=== PATIENT | female | born 1970 | race Caucasian/White ===

== ENCOUNTER → 2017-01-30 | Outpatient (CLI) | payer BC ==
[2016-05-12 21:11] VITALS: BP 102/64
[~2017-01-30] MED LIST: ALPR0.5T PO; ASPI-482 PO; ATOR10TA60 PO; CYCL10TA2 PO; ESZO3TAB28 PO; FURO-68 PO; GABA-586 PO; HYDR-2758 PO; LISI10TA2 PO; OMEP40CA5 PO; OXYC-323 PO; OXYC1TAB8 PO; POTA20TA12 PO; TRAZ100T12 PO; TRAZ300T2 PO; VENTOLIN HFA18 GM INH; ZOLP10TA PO; lipitor; methylPREDNISolone ACETATE 40 MG/ML VIAL. ONE; methylPREDNISolone ACETATE 80 MG/ML VIAL. ONE
--- NOTE | 2017-01-30 10:37 | PAIN ---
DATE OF SERVICE: 01/30/2017 DIAGNOSES: 1. Myofascial pain. 2. Cervical radiculopathy with cervical degenerative disk disease. HISTORY OF PRESENT ILLNESS: This is a 46-year-old female who returns for followup status post previous cervical epidural steroid injections, last seen 12/01/2015. The patient did very well for almost a year, got 99% improvement. Pain returning now over the past 3 to 4 weeks in the bilateral shoulders and upper extremities, with radiation more in the right arm than the left, but numbness and tingling in the bilateral hands, again worse on the right, with aching, sharp type shooting pain, burning and tingling, radiating pain becoming more constant without any specific recent injury or accident. The patient reports it has been 8 on a scale of 10 at its worse, is averaging about 5. The patient reports it wakes her from sleep 3-4 times a night. She has to reposition, and she continues to get back to sleep. The patient reports no new motor or sensory deficits, no new bowel or bladder incontinence, but still significant pain, again worse on the right arm, shoulder, anterior aspect of the biceps, triceps posteriorly as well with tingling and numbness in the hands with significant fatigability of the right upper extremity compared to the left with activity. The patient reports no loss of function, but significant fatigability as noted. PAST MEDICAL HISTORY: Significant for COPD, hypertension, borderline diabetes, arthritis, acid reflux and hypercholesterolemia. PREVIOUS SURGERY: Includes tonsillectomy, tubal ligation, bilateral carpal tunnel repair, femur fracture on the left with intramedullary alejandro, partial hysterectomy and left ACL reconstruction. SOCIAL HISTORY: The patient smokes about a pack a day, drinks alcohol very rarely. She is and lives with spouse and one child and is an ELECTRIC METER TECHNICIAN by occupation. FAMILY HISTORY: Significant for anemia, obesity, diabetes, hypertension, heart disease and strokes. MEDICATIONS: The patient's medication list is updated and documented well in the patient's chart. REVIEW OF SYSTEMS: Positive for those items mentioned in history of present illness. All systems reviewed and otherwise negative. It is complete, full and well documented on the patient's chart as well. PHYSICAL EXAMINATION: VITAL SIGNS: The patient's blood pressure 126/61, pulse 80, respirations 16, temperature 97.7 degrees Fahrenheit, height is 5 feet 6 inches, weighs 220 pounds. GENERAL: The patient is awake, alert, oriented, appropriate, very pleasant demeanor. HEENT: Head shows normocephalic, atraumatic. Extraocular movements are intact and symmetrical. Oral cavity shows mucous membranes moist and pink. Dentition is intact. NECK: Shows anterior throat supple without palpable lymphadenopathy noted. Swallow reflex is symmetrical. CHEST: Shows normal on inspection. Breath sounds are clear to auscultation bilaterally. HEART: Shows S1 and S2 clear. No murmurs auscultated. ABDOMEN: Obese, soft, nontender, nondistended. No palpable organomegaly is noted. No rebound or guarding demonstrated. BACK: Shows spine grossly in the midline. Normal-appearing thoracic kyphosis, cervical lordotic curvature and lumbar lordotic curvature. Significant tattooing is noted throughout the patient's cervical distribution and shoulders, with palpation shows some moderate tenderness in the paraspinous musculature, but are symmetrical without specific radiation, more tender on the right than the left in the superior medial trapezius compared to the lateral trapezius, but present bilaterally, again more tender on the right. The patient shows good rotational motion of cervical spine, both laterally greater than 45 degrees right and left as well as extension and full forward flexion without significant increase in pain. EXTREMITIES: Upper extremities showed deep tendon reflexes at 1+ in the biceps and triceps tendons. Motor exam is approximately 4 on a scale of 5 with right iron melter and 5/5 on the left. Peripheral pulses are 2+ radial distribution. No peripheral edema is noted bilaterally. Options were discussed with the patient, and the patient's old chart was reviewed as her current medication regimen updated. Current review of systems updated and today as noted. We will proceed with a cervical epidural steroid injection. She has done very well with these in the past. Risks were again discussed including, but not limited to bleeding, infection, possibility of epidural hematoma and subsequent neurologic compromise, dural puncture, headaches, spinal cord and/or nerve damage, side effects of steroid medication and poor results regarding pain control. The patient understands and wishes to proceed. The patient will return to clinic in approximately 2 weeks for followup. She was counseled on return appointment, activity level and side effects to be aware of. DIAGNOSES: Cervical radiculopathy with cervical degenerative disk disease. PROCEDURE: Cervical epidural steroid injection in translaminar approach at C6-C7 level, using C-arm fluoroscopic guidance under sterile prep and drape using local anesthetic. MEDICATION INJECTED: Total of 120 mg Depo-Medrol plus 5 mL preservative-free normal saline and 2 mL Isovue for contrast. CONDITION AT DISCHARGE: Stable. The patient tolerated procedure well, had no complications. ALANA LEES MD DR: CLIFFORD/vanesa JOB#: [id number] / [id number]
== END | disposition home or self-care (01) ==
LOC: PNCL 09:07
PROVIDERS: ATTEND Anesthesiology
DX: M50.123 Cervical disc disorder at C6-C7 level with radiculopathy (principal); D64.9 Anemia, unspecified; E66.9 Obesity, unspecified; Z68.36 Body mass index [BMI] 36.0-36.9, adult; E11.9 Type 2 diabetes mellitus without complications; J44.9 Chronic obstructive pulmonary disease, unspecified; M19.91 Primary osteoarthritis, unspecified site; K21.9 Gastro-esophageal reflux disease without esophagitis; Z86.69 Personal history of other diseases of the nervous system and sense organs; Z98.51 Tubal ligation status; Z90.710 Acquired absence of both cervix and uterus; Z72.0 Tobacco use; Z86.14 Personal history of Methicillin resistant Staphylococcus aureus infection; Z91.041 Radiographic dye allergy status; Z86.39 Personal history of other endocrine, nutritional and metabolic disease; Z83.3 Family history of diabetes mellitus
CPT/HCPCS: 62321; J1030; J1040

== ENCOUNTER → 2017-02-14 | Outpatient (CLI) | payer BC ==
[2016-05-12 21:11] VITALS: BP 102/64
[~2017-02-14] MED LIST changes: +IOHEXOL 180 MG/ML 10 ML VIAL. ONE
--- NOTE | 2017-02-14 10:48 | PAIN ---
DATE OF SERVICE: 02/14/2017 PROGRESS NOTE FOR PAIN CLINIC DIAGNOSES: 1. Myofascial pain. 2. Cervical radiculopathy with cervical degenerative disk disease. 3. Lumbar radiculopathy with lumbar degenerative disk disease. HISTORY OF PRESENT ILLNESS: The patient is a 46-year-old female who returns for followup status post cervical epidural steroid injection x 1. The patient returns and reports about 85% improvement in the neck and right greater than left upper extremity pain. The patient reports her main complaint now is low back and right lower extremity pain. She has had this previously but is becoming much worse now that her neck is doing much better. The neck is more noticeable with pain radiating down the right leg in the lateral anterior thigh, posterior thigh, medial lower leg to the medial ankle and foot. The patient reports an aching, sharp, shooting, cramping, constant becoming more severe, rated an 8 on a scale of 10 at its worst, 5 on average and 4 is at least and is 4 today. The patient reports no new motor or sensory deficits, no new bowel or bladder incontinence or other complaints and again her neck is doing much better but her low back is her main complaint at this time. The patient reports it awakens her from sleep at night. She has because of the low back and right lower extremity pain fairly significantly throughout the evening and throughout the night. The patient reports no new motor or sensory deficits. No new bowel or bladder incontinence or other complaints. PHYSICAL EXAMINATION: VITAL SIGNS: The patient's blood pressure 116/74, pulse 76, respirations 18 and temperature 97.9 degrees Fahrenheit. Height is 5 feet 6 inches and weight is 224 pounds. GENERAL: The patient is awake, alert, oriented, appropriate and very pleasant demeanor. HEENT: Head shows normocephalic and atraumatic. Extraocular movements are intact and symmetrical. Oral cavity shows mucous membranes moist and pink. Dentition is intact. NECK: Shows anterior throat supple without palpable lymphadenopathy noted. Swallow reflex is symmetrical. CHEST: Shows normal with inspection. Breath sounds clear to auscultation bilaterally. HEART: Shows S1 and S2 clear. No murmurs auscultated. ABDOMEN: Soft, obese, nontender and nondistended. BACK: Shows spine grossly in the midline. Neck shows full rotational motion of the cervical spine without significant difficulty or tenderness. Normal appearing cervical lordotic curvature, thoracic kyphotic curvature and lumbar lordotic curvature. The patient has some extensive tattooing on her back with inspection. Her paraspinous musculature in the lumbar distribution is symmetrical with palpation shows some moderate tenderness with palpation bilaterally and diffusely in the lower lumbar distribution but only moderately without radiation. No tenderness over the sacrum or sacroiliac regions. No difficulty with rotational motion, which the patient performs fully right and left as well as extension and flexion of the lumbar spine without pain reported. Lower extremities show deep tendon reflexes 1+ in the patellar and tendo-calcaneus tendons. Motor exam is strong with 5/5 dorsiflexion, extension, quadriceps and hamstring flexion is intact. Peripheral pulses are 1+ posterior tibial bilaterally. Options were discussed with the patient. The patient's old chart was reviewed as her current medication regimen updated. Current review of systems updated today as well. We will proceed with a lumbar epidural steroid injection today with fluoroscopic guidance. Risks were again discussed including but not limited to bleeding, infection, possibility of epidural hematoma and subsequent neurologic compromise, dural puncture, headaches, spinal cord and/or nerve damage, side effects of steroid medication and poor results regarding pain control. The patient understands and wishes to proceed. The patient will return to clinic in approximately 2 weeks for followup, was counseled on return appointment, activity level and side effects to be aware of. DIAGNOSIS: Lumbar radiculopathy with lumbar degenerative disk disease. PROCEDURES: Lumbar epidural steroid injection in translaminar approach at L4-L5 level using C-arm fluoroscopic guidance under sterile prep and drape using local anesthetic. MEDICATION INJECTED: A total of 120 mg Depo-Medrol plus 10 mL of preservative-free normal saline. CONDITION AT DISCHARGE: Stable. The patient tolerated procedure well, had no complications. ALANA LEES MD DR: CLIFFORD/vanesa JOB#: [id number] / [id number]
== END | disposition home or self-care (01) ==
LOC: PNCL 07:41
PROVIDERS: ATTEND Anesthesiology
DX: M51.16 Intervertebral disc disorders with radiculopathy, lumbar region (principal); M50.10 Cervical disc disorder with radiculopathy, unspecified cervical region; E78.00 Pure hypercholesterolemia, unspecified; J44.9 Chronic obstructive pulmonary disease, unspecified; I10 Essential (primary) hypertension; Z87.39 Personal history of other diseases of the musculoskeletal system and connective tissue; Z86.69 Personal history of other diseases of the nervous system and sense organs; Z72.0 Tobacco use; Z91.041 Radiographic dye allergy status; Z83.3 Family history of diabetes mellitus
CPT/HCPCS: 62323; J1030; J1040

== ENCOUNTER → 2018-08-27 | Outpatient (CLI) | payer BC, MEDICAID ==
[2016-05-12 21:11] VITALS: BP 102/64
[~2018-08-27] MED LIST changes: +ALBU2.5V8 INH; +ALPR2TAB5 PO; +ATOR40TA59 PO; +BUDE180A IH; +BUPR150T15 PO; +BUSP30TA PO; +CETI10TA22 PO; +EZET10TA48 PO; -GABA-586 PO; +GABA300C18 PO; -HYDR-2758 PO; +HYDR-2761 PO; +HYDR25TA PO; -IOHEXOL 180 MG/ML 10 ML VIAL. ONE; +MONT10TA6 PO; +NAPR-634 PO; +ONDA8TAB9 PO; -OXYC-323 PO; +OXYC1TAB15 PO; +PRAZ2CAP2 PO; +TRAZ-86 PO; -TRAZ100T12 PO; -methylPREDNISolone ACETATE 40 MG/ML VIAL. ONE; -methylPREDNISolone ACETATE 80 MG/ML VIAL. ONE
--- NOTE | 2018-08-27 11:34 | RAD ---
Examination: MRI of the right shoulder without contrast HISTORY: History of right shoulder pain with limited range of motion COMPARISON: None available Technique: Multiplanar, multisequence MR imaging of the right shoulder were performed without contrast. Findings: The long head of the biceps tendon within the bicipital groove. The attachment of the long head the biceps tendon to the superior labral anchor grossly appears intact. The attachment of subscapularis tendon grossly appears intact. There is a small focus of increased signal identified in the undersurface fibers of the anterior supraspinatus tendon likely a high-grade partial to near full-thickness tear. Moderate increased signal identified within the supraspinatus, infraspinatus tendons likely tendinosis. Moderate degenerative changes identified in the acromioclavicular joint. The acromion is type II. The muscle bulk grossly appears unremarkable. The visualized labrum grossly appears unremarkable Fat is present within the intertubercular interval. Mild degenerative changes glenohumeral joint. IMPRESSION: 1.High-grade partial to full-thickness tear identified in the anterior fibers of the supraspinatus tendon with a background of moderate tendinosis of the supraspinatus, infraspinatus tendons. 2. Downsloping of the acromion. Correlate for impingement. 3. Moderate degenerative changes acromioclavicular joint Electronically signed by: Srinivasa Block MD (08/27/2018 11:31 AM) [email or web address]
== END | disposition home or self-care (01) ==
LOC: MRI 10:24
PROVIDERS: ATTEND Orthopaedic Surgery Sports Medicine
DX: S46.911A Strain of unspecified muscle, fascia and tendon at shoulder and upper arm level, right arm, initial encounter (principal); M19.011 Primary osteoarthritis, right shoulder; X58.XXXA Exposure to other specified factors, initial encounter; Y93.89 Activity, other specified; Y92.89 Other specified places as the place of occurrence of the external cause; Y99.8 Other external cause status
CPT/HCPCS: 73221

== ENCOUNTER → 2018-09-03 | Outpatient (CLI) | payer OTHER ==
[2016-05-12 21:11] VITALS: BP 102/64
--- NOTE | 2018-09-03 12:56 | RAD ---
Lumbar spine, right hip and right knee radiograph 09/03/2018 12:00 AM INDICATION: Pain with decreased range of motion COMPARISON: None available. TECHNIQUE: 2 views of the lumbar spine, 3 views of the right hip and 2 views of the right knee are provided. FINDINGS: Lumbar spine: There are 5 nonrib-bearing lumbar type vertebral bodies. There is minimal retrolisthesis of L5 and S1. There is mild disc height loss at L3-L4 and L4-L5 with mild endplate sclerosis. Mild anterior marginal osteophytosis is identified at L3-L4 and L4-L5. There is moderate disc height loss at L5-S1 with endplate sclerosis and mild anterior marginal osteophytosis. Moderate facet arthropathy is noted in the lower lumbar spine. Vascular stent graft is identified within the distal abdominal aorta. Right hip: There is no acute fracture or dislocation. Mild joint space narrowing with subcortical sclerosis. No significant marginal osteophytosis. Superior and inferior pubic rami appear intact. Bone mineralization is within normal limits. Right knee: Mild medial femorotibial joint space narrowing with subcortical sclerosis. Small knee joint effusion. No acute fracture or dislocation. Mild marginal osteophytosis involving the lateral femorotibial joint space. IMPRESSION: 1. There is minimal retrolisthesis of L5 on S1 with moderate associated facet arthropathy. 2. No acute fracture or dislocation the right hip. 3. No acute fracture or dislocation of the right knee. Mild medial femorotibial osteoarthrosis. 4. Small knee joint effusion. Electronically signed by: Mana Timmons MD (09/03/2018 12:53 PM) [email or web address]
--- NOTE | 2018-09-03 13:13 | RAD ---
Cervical spine radiograph 09/03/2018 INDICATION: Decreased range of motion. COMPARISON: MRI cervical spine July 03, 2015 TECHNIQUE: AP and lateral views of the cervical spine are provided. FINDINGS: There is reversal of the normal cervical lordosis. There is grade 1 retrolisthesis of C5 on C6. There is mild disc height loss at C5-C6 with endplate sclerosis and marginal osteophytosis. There is mild to moderate multilevel facet arthropathy. Mild uncovertebral joint disease and it C5-C6. There is no prevertebral soft tissue swelling. No acute fracture is identified. Spinous processes are intact. IMPRESSION: Grade 1 retrolisthesis of C5 on C6 with reversal of the normal cervical lordosis. Findings may be secondary to degenerative facet arthropathy. Electronically signed by: Mana Timmons MD (09/03/2018 1:10 PM) [email or web address]
== END | disposition home or self-care (01) ==
LOC: RAD 10:28
PROVIDERS: ATTEND Internal Medicine
DX: M25.461 Effusion, right knee (principal); M25.761 Osteophyte, right knee; M25.861 Other specified joint disorders, right knee; M25.851 Other specified joint disorders, right hip; M12.88 Other specific arthropathies, not elsewhere classified, other specified site; Z95.828 Presence of other vascular implants and grafts
CPT/HCPCS: 72040; 72100; 73502; 73560

== ENCOUNTER 2018-09-26 05:57 | Day surgery (SDC) | payer MEDICAID ==
[~2018-09-26] VITALS: Ht 162.6 cm; Wt 103.0 kg
[~2018-09-26 05:57] MED LIST changes: +MONT10TA49 PO; -MONT10TA6 PO; -ONDA8TAB9 PO
[2018-09-26] MEDS ORDERED: LIDOCAINE 1% PF 30 ML VIAL. ONE (05:59)
[2018-09-26] MEDS ORDERED: EPINEPHrine VIAL 30 MG/30 ML VIAL ONE (05:59)
[2018-09-26] MEDS ORDERED: BUPIVACAINE MPF 0.5% 30 ML VIAL. ONE (05:59)
[2018-09-26] MEDS ORDERED: ONDANSETRON PF 4 MG/2 ML VIAL. IV PRN (07:00)
[2018-09-26] MEDS ORDERED: fentaNYL PF VIAL 100 MCG/2 ML VIAL IV PRN ×2 (07:00)
[2018-09-26] MEDS ORDERED: IV RINGERS,LACTATED 1000ML 1,000 ML IV SCH (07:00)
[2018-09-26] MEDS ORDERED: PROCHLORPERAZINE 10 MG/2 ML VIAL. IV PRN (07:00)
[2018-09-26] MEDS ORDERED: HYDROmorphone 2 MG/ML VIAL IV PRN (07:00)
[2018-09-26] MEDS ORDERED: MORPHINE SULFATE 2 MG/ML VIAL. IV PRN (07:00)
[2018-09-26] MEDS ORDERED: MIDAZOLAM HCL/PF 2 MG/2 ML VIAL. ONE (07:03)
[2018-09-26] MEDS ORDERED: BUPIVACAINE MPF 0.75% 30 ML VIAL. ONE (07:04)
[2018-09-26] MEDS ORDERED: LIDOCAINE 1% PF 2 ML VIAL. ONE (07:04)
[2018-09-26] MEDS ORDERED: EPINEPHrine 1 MG/ML VIAL ONE (07:04)
[2018-09-26] MEDS ORDERED: LIDOCAINE 2% PF 5 ML VIAL. ONE (07:12)
[2018-09-26] MEDS ORDERED: DEXAMETHASONE SOD PHOS 4 MG/ML VIAL ONE (07:12)
[2018-09-26] MEDS ORDERED: ONDANSETRON PF 4 MG/2 ML VIAL. ONE (07:12)
[2018-09-26] MEDS ORDERED: PROPOFOL 20 ML IV ONE ×2 (07:12→08:20)
[2018-09-26] MEDS ORDERED: ROCURONIUM 50 MG/5 ML VIAL. ONE (07:14)
--- NOTE | 2018-09-26 07:34 | DISCH ---
DISCHARGE INSTRUCTIONS Condition on Discharge Condition on Discharge: Stable Activity After Discharge Activity Instructions for Disc: Activity as tolerated, Other ROM activity Other activity instructions: arm to remain in sling Lifting Instructions after Dis: Add. restrict see below Weight Bearing Status after Di: Non weight bearing Diet after Discharge Diet after Discharge: Cardiac, Regular Diet Texture: Regular Wound Incision Care Wound/Incision Care: Ice to area for comfort, Keep wound/cast CDI, Change dressing, No wound care needed Contacting the DR. after DC Call your doctor for: Concerns you may have Follow-Up Follow up with: Andrade in 2 wks ESVIN CROSS II, MD September 26, 2018 07:34
[2018-09-26] MEDS ORDERED: ceFAZolin 2GM PREMIX 2 GM/50 ML BAG IV ONE (08:00)
[2018-09-26] MEDS ORDERED: SEVOFLURANE 61 TO 120 MINUTES. IH ONE (08:04)
[2018-09-26] MEDS ORDERED: PHENYLEPHRINE in 0.9% NACL PF 1 MG/10 ML SYRINGE. IV ONE ×2 (08:04→08:08)
--- NOTE | 2018-09-26 08:49 | PDOC4 ---
Operative Note Operative Note Date of procedure: 09/26/2018 Surgeon: Bertin Cross Volcanology Professor: Ellen Fitch, certified public accountant Preoperative diagnosis: Right shoulder rotator cuff tear Postoperative diagnosis: Same Procedure performed: Arthroscopic right shoulder rotator cuff repair Anesthesia: Gen. plus regional nerve block Findings: #1 Incomplete supraspinatus tear, remainder of rotator cuff unremarkable #2 Grade 2-3 changes a glenoid and humeral head #3 Labrum intact circumferentially, some degenerative fraying superiorly #4 No loose bodies #5 biceps tendon unremarkable Blood loss: 5mL Components inserted: [employer] Helacoil anchor Reason for procedure: Patient is a very pleasant female who has had long- standing shoulder pain and dysfunction. She had been seen and evaluated in my outpatient orthopedic surgery clinic, please see this note for full details. She had tried and failed conservative therapies. Clinical and radiographic examination, including MRI, was consistent with the preoperative diagnosis. We had a discussion of the risks, benefits, alternatives the above surgery and he wished to proceed. Description of procedure: Patient was greeted in the preoperative holding area where the correct extremity was verified and marked. They were taken to the preoperative holding area where the anesthesiology team placed a regional nerve block. The patient was then taken back to the operative suite and antibiotics were started as they were brought back. Once in the operative room, the patient was transferred gently supine to the operating room table after successful induction of a general anesthetic. After this, she was sat up in a beachchair position maintaining his C-spine in neutral position, large pad under her legs, she was secured to the bed. We then prepped and draped her right upper extremity and shoulder girdle in our usual sterile fashion, we conducted our standard preoperative timeout. I palpated and marked surface anatomy for my planned portal sites. I then used a spinal needle to localize a posterior superior portal and incised skin in accordance with this. After this, I introduced the blunt arthroscopic trocar into the glenohumeral joint followed by the camera. I used a spinal needle to localize an anterosuperior portal and incised skin in accordance with this. I then introduced my arthroscopic probe and conducted my diagnostic arthroscopy with the above-noted findings. I then inspected her rotator cuff and noted the incomplete tear, used a spinal needle to pass a PDS suture through the tear so I wasnt able to visualize it from the bursal side. After this, I repositioned the camera into the subacromial space and performed a bursectomy with combination of shaver and electrocautery device. I then used a spinal needle for localization and created a lateral portal. I then screwed into position my cannula laterally. I then created a posterolateral portal for suture management. I then directed my attention to the area the PDS suture and was easily able to violate the substance of the tendon with the blunt probe. I then debrided the tendon to stable edges as well as I prepared my footprint, taking care not to decorticate. I then placed my helacoil anchors and shuttled limbs through in a simple configuration. I tied these down with arthroscopic knot-tying techniques. The tear was stable to probing and to gentle rotation of the arm. I then removed all loose bony debris and the excess arthroscopic fluid. I took my final pictures prior to this. After this, all the excess fluid and instrumentation was removed. The portals were closed with simple interrupted 3-0 nylon. Steri-Strips were applied. Sterile dressing was applied followed by an abduction pillow sling. Patient tolerated surgery well. No complications. All counts correct 2 prior to wound closure. At the conclusion, she was laid supine and transferred gently supine to the r ecovery room cart and taken to the PACU in a stable and extubated condition. Postoperative plan is discharge him home, nonweightbearing for 6 weeks. Well get her started on physical therapy. She will follow up with me in 2 weeks, sooner should a problem arise. BERTIN CROSS II, MD September 26, 2018 08:49
[2018-09-26] MEDS ORDERED: OXYC1TAB15 PO (09:30)
[2018-09-26] MEDS ORDERED: ONDA8TAB9 PO (09:30)
[2018-09-26 09:47] VITALS: BP 94/73
== END 2018-09-26 10:03 ==
LOC: SURG 05:57
PROVIDERS: ATTEND Orthopaedic Surgery Sports Medicine
DX: M75.111 Incomplete rotator cuff tear or rupture of right shoulder, not specified as traumatic (principal); M24.111 Other articular cartilage disorders, right shoulder; F17.210 Nicotine dependence, cigarettes, uncomplicated; J44.9 Chronic obstructive pulmonary disease, unspecified; K21.9 Gastro-esophageal reflux disease without esophagitis; Z90.710 Acquired absence of both cervix and uterus; Z98.890 Other specified postprocedural states; Z72.89 Other problems related to lifestyle; Z91.041 Radiographic dye allergy status; Z79.899 Other long term (current) drug therapy
CPT/HCPCS: 29827; 36415; 82306; A7015; C1713; C1782; J0171; J0696; J1100; J2001; J2250; J2370; J2405; J2704; J3490; J7120

== ENCOUNTER 2019-01-20 02:40 | Emergency (ER) | payer MEDICAID ==
[~2019-01-20] VITALS: Ht 165.1 cm; Wt 90.3 kg
[~2019-01-20 02:40] MED LIST changes: +ONDA8TAB9 PO
[2019-01-20] MEDS ORDERED: TRAM50TA PO (03:10)
[2019-01-20] MEDS ORDERED: ONDA4TAB7 PO (03:10)
--- NOTE | 2019-01-20 03:11 | PHYS DOC ---
Past Medical History Past Medical History: Anxiety, Fibromyalgia, Hypertension, Other Additional Past Medical Histor: PTSD, lower ext edema Past Surgical History: Hysterectomy, Tonsillectomy, Other Additional Past Surgical Histo: ACL RECONSTRUCTION, HIP/FEMUR, BILAT CARPEL TUNNEL,AORTIC STENT PLACED OCT. Alcohol Use: Occasionally Drug Use: None Adult General Chief Complaint Chief Complaint: KNEE SWELLING HPI HPI Patient is a 48 year old [f__sex] who presents with [] Review of Systems Review of Systems Constitutional: Denies fever or chills [] Eyes: Denies change in visual acuity, redness, or eye pain [] HENT: Denies nasal congestion or sore throat [] Respiratory: Denies cough or shortness of breath [] Cardiovascular: No additional information not addressed in HPI [] GI: Denies abdominal pain, nausea, vomiting, bloody stools or diarrhea [] : Denies dysuria or hematuria [] Musculoskeletal: Denies back pain or joint pain [] Integument: Denies rash or skin lesions [] Neurologic: Denies headache, focal weakness or sensory changes [] Endocrine: Denies polyuria or polydipsia [] All other systems were reviewed and found to be within normal limits, except as documented in this note. Allergies Allergies Allergies Coded Allergies Type Severity Reaction Last Updated Verified Iodinated Contrast- Oral and IV Dye Allergy Severe Rash 09/26/18 Yes Physical Exam Physical Exam Constitutional: Well developed, well nourished, no acute distress, non-toxic appearance. [] HENT: Normocephalic, atraumatic, bilateral external ears normal, oropharynx moist, no oral exudates, nose normal. [] Eyes: PERRLA, EOMI, conjunctiva normal, no discharge. [] Neck: Normal range of motion, no tenderness, supple, no stridor. [] Cardiovascular:Heart rate regular rhythm, no murmur [] Lungs & Thorax: Bilateral breath sounds clear to auscultation [] Abdomen: Bowel sounds normal, soft, no tenderness, no masses, no pulsatile masses. [] Skin: Warm, dry, no erythema, no rash. [] Back: No tenderness, no CVA tenderness. [] Extremities: No tenderness, no cyanosis, no clubbing, ROM intact, no edema. [] Neurologic: Alert and oriented X 3, normal motor function, normal sensory function, no focal deficits noted. [] Psychologic: Affect normal, judgement normal, mood normal. [] EKG EKG [] Radiology/Procedures Radiology/Procedures [] Course & Med Decision Making Course & Med Decision Making Pertinent Labs and Imaging studies reviewed. (See chart for details) [] Dragon Disclaimer Dragon Disclaimer This electronic medical record was generated, in whole or in part, using a voice recognition dictation system. Departure Departure Impression: Primary Impression: Knee pain, right Disposition: HOME, SELF-CARE Condition: STABLE Referrals: JANE FERREIRA MD (PCP) Patient Instructions: Knee Pain, Elby-[id number]-[id number] Additional Instructions: Tylenol/Motrin as needed for pain Xray not repeated given no acute injury and already completed as outpatient Keep appointment as scheduled for 01/29 with orthopedic doctor Recommend calling PCP for further instructions Continue use of crutches as needed Return to the ER with fever, skin changes concerning for cellulitis, altered mental status Scripts Ondansetron Hcl (ZOFRAN) 4 Mg Tablet 1 TAB PO PRN Q6-8HRS, #12 TAB Prov: JOLYNN MUSTAFA MD 01/20/19 Tramadol Hcl (TRAMADOL HCL) 50 Mg Tablet 50 MG PO Q6HRS PRN for PAIN for 5 Days, #20 TAB Prov: JOLYNN MUSTAFA MD 01/20/19 Problem Qualifiers Primary Impression: Knee pain, right Chronicity: acute Qualified Codes: M25.561 - Pain in right knee JOLYNN MUSTAFA MD Jan 20, 2019 03:11
[2019-01-20] MEDS ORDERED: KETOROLAC 60 MG/2 ML VIAL. IM ONE (03:30)
--- NOTE | 2019-01-20 06:18 | PHYS DOC ---
Past Medical History Past Medical History: Anxiety, Fibromyalgia, Hypertension, Other Additional Past Medical Histor: PTSD, lower ext edema Past Surgical History: Hysterectomy, Tonsillectomy, Other Additional Past Surgical Histo: ACL RECONSTRUCTION, HIP/FEMUR, BILAT CARPEL TUNNEL,AORTIC STENT PLACED JAN. Alcohol Use: Occasionally Drug Use: None Adult General Chief Complaint Chief Complaint: KNEE SWELLING HPI HPI 48-year-old female presents to the emergency department with complaints of knee pain. Patient was apparently seen by her primary care physician as an outpatient, x-ray ordered an orthopedic referral for appointment on January 29, 2019. Patient presents to the emergency department today with increasing pain. She denies any injury. Outpatient x-ray revealed no evidence of acute fracture. Patient states she's had difficulty with ambulation, she has crutches with her. Patient denies any chest pain, shortness of breath, vomiting, abdominal pain, fevers. She does state she has nausea with pain. Weightbearing worsens the pain. Review of Systems Review of Systems Constitutional: Denies fever or chills [] Respiratory: Denies cough or shortness of breath [] Cardiovascular: No additional information not addressed in HPI [] GI: No abdominal pain, vomiting, diarrhea, positive nausea with pain Musculoskeletal: Right knee pain Integument: Denies rash or skin lesions [] Neurologic: Denies headache, focal weakness or sensory changes [] All other systems were reviewed and found to be within normal limits, except as documented in this note. Current Medications Current Medications Current Medications Medications (Trade) Dose Ordered Sig/[facility] Start Time Stop Time Status Last Admin Dose Admin Ketorolac Tromethamine (Toradol Im) 60 mg 1X ONCE 01/20/19 03:30 01/20/19 03:31 DC 01/20/19 03:30 60 MG Allergies Allergies Allergies Coded Allergies Type Severity Reaction Last Updated Verified Iodinated Contrast Media Allergy Severe Rash 09/26/18 Yes Physical Exam Physical Exam Constitutional: Well developed, well nourished, distressed secondary to pain, non-toxic appearance. [] HENT: Normocephalic, atraumatic, bilateral external ears normal, oropharynx moist, no oral exudates, nose normal. [] Eyes: PERRLA, EOMI, conjunctiva normal, no discharge. [] Cardiovascular:Heart rate regular rhythm, no murmur [] Lungs & Thorax: Bilateral breath sounds clear to auscultation [] Abdomen: Bowel sounds normal, soft, no tenderness, no masses, no pulsatile masses. [] Skin: Warm, dry, no erythema, no rash. [] Extremities: Tenderness appreciated to tibial plateau on the right knee, minimal evidence of joint effusion appreciated, no redness or warmth appreciated. Range of motion is normal however painful. Neurologic: Alert and oriented X 3, no focal deficits noted. [] Psychologic: Affect normal, judgement normal, mood normal. [] Current Patient Data Vital Signs Vital Signs Date Time Temp Pulse Resp B/P (MAP) Pulse Ox O2 Delivery O2 Flow Rate FiO2 01/20/19 02:45 98.3 93 14 127/76 (93) 97 Room Air 98.3 EKG EKG [] Radiology/Procedures Radiology/Procedures [] Course & Med Decision Making Course & Med Decision Making Pertinent Labs and Imaging studies reviewed. (See chart for details) []48-year-old female presents to the emergency department with complaints of kne e pain. Patient was apparently seen by her primary care physician as an outpatient, x-ray ordered an orthopedic referral for appointment on January 29, 2019. Patient presents to the emergency department today with increasing pain. She denies any injury. Outpatient x-ray revealed no evidence of acute fracture. Patient states she's had difficulty with ambulation, she has crutches with her. Patient denies any chest pain, shortness of breath, vomiting, abdominal pain, fevers. She does state she has nausea with pain. Weightbearing worsens the pain Discussed imaging from outpatient, repeat was not performed given no new injury. Toradol 60 mg IM �1. Recommend follow with primary care physician as an outpatient to discuss further MRI imaging recommending continuing land appointment with orthopedic surgery on January 29, 2019. Return precautions provided, discussed with patient at bedside, she is understanding. Dragon Disclaimer Dragon Disclaimer This electronic medical record was generated, in whole or in part, using a voice recognition dictation system. Departure Departure Impression: Primary Impression: Knee pain, right Disposition: HOME, SELF-CARE Condition: STABLE Referrals: JANE FERREIRA MD (PCP) Patient Instructions: Knee Pain, [id number] Additional Instructions: Tylenol/Motrin as needed for pain Xray not repeated given no acute injury and already completed as outpatient Keep appointment as scheduled for 01/29 with orthopedic doctor Recommend calling PCP for further instructions Continue use of crutches as needed Return to the ER with fever, skin changes concerning for cellulitis, altered mental status Scripts Ondansetron Hcl (ZOFRAN) 4 Mg Tablet 1 TAB PO PRN Q6-8HRS, #12 TAB Prov: JOLYNN MUSTAFA MD 01/20/19 Tramadol Hcl (TRAMADOL HCL) 50 Mg Tablet 50 MG PO Q6HRS PRN for PAIN for 5 Days, #20 TAB Prov: JOLYNN MUSTAFA MD 01/20/19 Problem Qualifiers Primary Impression: Knee pain, right Chronicity: acute Qualified Codes: M25.561 - Pain in right knee JOLYNN MUSTAFA MD Jan 20, 2019 06:18
== END 2019-01-20 03:49 | disposition home or self-care (01) ==
LOC: ER 02:40
DX: M25.561 Pain in right knee (principal); I10 Essential (primary) hypertension; Z95.5 Presence of coronary angioplasty implant and graft; Z90.710 Acquired absence of both cervix and uterus; Z98.890 Other specified postprocedural states; Z91.041 Radiographic dye allergy status
CPT/HCPCS: 96372; 99283; J1885